=== PATIENT | female | born 1990 | race Caucasian/White ===

== ENCOUNTER 2024-06-04 09:30 | Outpatient (RCR) | payer MEDICAID, SELFPAY ==
--- NOTE | 2024-05-27 13:03 | PTNOTE_ITS ---
PT OP Initial Eval Patient Information Outpatient Physical Therapy Treatment Date: 05/27/24 Visit Reasons: Pain in Right shoulder Medical Diagnosis: M67.80; M75.01 Treatment Dx #1: Right Shoulder Pain Treatment Dx #2: Right Shoulder Impingement Start of Care: 05/27/24 Date of Onset: 8 years ago Smoking Status Smoking Status: Never smoker Initial Assessment Subjective: Pt is a 33 y/o female reports of chronic right shoulder pain (01/27) started 8 years ago and is worsening over the past 1 year. Pt mention most recent imaging found calcific tendon. Pt recently found her she is Pt has limitation with lifting, overhead motions, chores, self care, cooking, cleaning, and performing recreational activities. Objective: Right Shoulder AROM Flexion: 120 deg Abduction: 80 deg External Rotation: 50 deg Internal Rotation: 30 deg Right Shoulder MMTs: grossly 3-/5 Right Scapula MMTs: grossly 3-/5 Special Test (+) Hawkin-seth Assessment: Pt demonstrate right shoulder pain consistent with shoulder impingement leading to difficulty with ADLs. Pt will attempt physical therapy if pain persist Pt will be refer back to provider for further consultation. Short Term and [employer] Goals 1) Increase right shoulder AROM WFL in 6 wks to be able to perform chores 2) Decrease shoulder pain to 2/10 in 6 wks to be able to perform lifting activities 3) Increase right shoulder MMTs grossly to 3+/5 in 6 wks to be able to perform recreational activities 4) Indep with HEP Treatment Plan 1) Manual Therapy 2) Therapeutic Activities 3) Therapeutic Exercises 4) Modalities (ice, heat) Frequency and Duration: 2 x wk for 6 wks Certification Dates: 05/27/24 to 08/27/24 Procedure Charges OP PT Eval Mod Complex 30 minutes: Yes
--- NOTE | 2024-06-02 10:35 | PT.ODAYNRPT ---
PT Outpatient Daily Note OP Daily Note Outpatient Physical Therapy Treatment Date: 06/02/24 Visit Reasons: Pain in Right shoulder Subjective: Pt's shoulder pinch moving ourward. Pt can reach overhead with her arm close to the side with less pain. Objective: Please see flow chart for list of ther ex performed Assessment: pain with shoulder abduction with donny modified to scaption plane with less pain reported Plan: Continue with PT Length of Time (minutes) of Treatment: 30 Minutes Procedure Charges Therapeutic Exercise 30 minutes: Yes
--- NOTE | 2024-06-04 10:26 | PT.ODAYNRPT ---
PT Outpatient Daily Note OP Daily Note Outpatient Physical Therapy Treatment Date: 06/04/24 Visit Reasons: Pain in Right shoulder Subjective: Pt's shoulder feels about the same but neck is feeling better. Objective: Please see flow chart for list of ther ex performed Assessment: progressing with shoulder AAROM with less pain. Decrease upper trape usage with shoulder exercises leading to decrease neck pain Plan: Continue with PT Length of Time (minutes) of Treatment: 30 Minutes Procedure Charges Therapeutic Exercise 30 minutes: Yes
--- NOTE | 2024-06-30 09:45 | PTNOTE_ITS ---
PT OP Progress/Discharge Note Date of Service: 06/30/24 Progress Note/DC Note Progress Note/Discharge Note: DC Note Patient Information Visit Reasons: Pain in Right shoulder Service Discharge Date: 06/30/24 Status Assessment: Pt has been seen for 3 visits (eval + 2 visits). Pt no showed 06/09/24 appt and has not return to therapy. At this time Pt will be d/c from care due to non- compliance per attendance policy. Pt did not meet set goals in therapy; thank you for your referrals.
== END 2024-06-19 23:59 | disposition home or self-care (01) ==
LOC: CPTX 09:30
PROVIDERS: PCP Nurse Practitioner; Referring Provider Nurse Practitioner; Visit Provider Nurse Practitioner
DX: M25.511 Pain in right shoulder (principal); M67.80 Other specified disorders of synovium and tendon, unspecified site; M75.01 Adhesive capsulitis of right shoulder
CPT/HCPCS: 97110; 97162

== ENCOUNTER 2024-12-31 08:31 | Outpatient (RCR) | payer MEDICAID, SELFPAY ==
[2024-12-31 08:58] VITALS: BMI 23.9
[2024-12-31 08:59] VITALS: BP 128/73; PULSE 79; RESP 18; TEMP 36.3; O2SAT 99
[2024-12-31 09:20] VITALS: TEMP 36.3
[2024-12-31] MEDS: IRON SUCROS CPLX INJ 200 MG in SODIUM CHLORIDE 0.9% 100 ML 110 MG IV (09:24)
[2024-12-31 10:30] VITALS: BP 120/65; PULSE 73; RESP 18; TEMP 36.5; O2SAT 98
== END 2025-01-17 23:59 | disposition home or self-care (01) ==
LOC: SFLEX 08:31
PROVIDERS: PCP Nurse Practitioner; Referring Provider Specialist; Visit Provider Specialist
PROC: (CPT 96365; principal; 2024-12-31 09:00)
DX: D50.8 Other iron deficiency anemias (principal); K90.49 Malabsorption due to intolerance, not elsewhere classified
CPT/HCPCS: 96365; J1756; J7050

== ENCOUNTER 2025-01-01 21:05 | Outpatient (CLI) | payer MEDICAID, SELFPAY ==
[2025-01-01] VITALS (8 sets, daily range): BP systolic 124; BP diastolic 67; PULSE 98–115; RESP 18–98; TEMP 36.7; O2SAT 98–99; BMI 23.6
[2025-01-01] MEDS: BETAMET ACET/BETAMET NA PH (Celestone) 6 MG/ML VIAL 12 MG IM (21:50)
== END 2025-01-01 22:05 | disposition home or self-care (01) ==
LOC: S4SX 21:47 → S4S1 22:10
PROVIDERS: Referring Provider Specialist; Visit Provider Specialist
DX: Z34.83 Encounter for supervision of other normal pregnancy, third trimester (principal); Z36.9 Encounter for antenatal screening, unspecified; Z3A.36 36 weeks gestation of pregnancy
CPT/HCPCS: 59025; 96372; J0702

== ENCOUNTER 2025-01-02 07:47 | Inpatient (IN) | payer MEDICAID, SELFPAY ==
[2025-01-02] VITALS (44 sets, daily range): BP systolic 103–134; BP diastolic 54–74; PULSE 65–171; RESP 16–99; TEMP 36.6–36.8; O2SAT 97–100; BMI 23.6
[2025-01-02] MEDS: RINGERS LACTATED 1000 ML 1,000 ML 100 ML IV (07:55)
--- NOTE | 2025-01-02 08:13 | ESDS_ITS ---
DS: Providers Provider Date of admission: 01/02/25 07:47 Primary care physician: Physician No Primary/Family Admitting Provider: Marcos Gore MD Attending Provider on Admission: Marcos Gore MD Attending Provider on DC: Marcos Gore MD Discharging Provider: Marcos Gore MD DS: Diagnosis Problem List Completed Was Problem List Reviewed/Reconciled?: Yes Summary/Hosp Course Time Spent with Patient Time attestation: Total time spent providing and/or coordinating discharge services: Exam Vital Signs Pulse BP 104 H 134/74 H 01/02/25 07:55 01/02/25 07:55 Discharge Plan Plan Patient Disposition: HOME (Self Care) Disposition Comment: Stable Patient condition on transfer: Stable Prescriptions/Referrals Prescriptions/Med Rec: New ibuprofen 600 mg tablet 600 mg PO Q6H PRN (Reason: pain) Qty: 30 0RF 28-800 mg-mcg tablet 1 tab PO DAILY Qty: 90 3RF ferrous sulfate 325 mg (65 mg iron) tablet 325 mg PO BID Qty: 60 1RF Referrals: No Primary/Family,Physician [Primary Care Provider] - Patient/Caregiver Discharge Instructions Discharge Activity: activity as tolerated Other Discharge Activity Instructions:: Follow up office 6 weeks. Education Materials: After a Vaginal , Breast Care After , Anemia During , Feel Healthy After Print Language: Vietnamese Activity Restrictions/Additional Instructions: Call for heavy vaginal bleeding, signs of depression. Fevers chills. Stand Alone Forms: Sarahy Award Info., Patient Portal Info Letter, Work/Release Restrictions Discharge Order Discharge Orders: Discharge (Routine); Ordered 01/03/25 Ordered By: Ivania Piper ([facility]) Planned Discharge Date 01/03/25
--- NOTE | 2025-01-02 08:13 | PD.LDHP ---
Documentation for date of: 01/02/25 OB Labor/Induct. HPI History of Present Illness : 4 Term pregnancies: 3 pregnancies: 0 Living children: 3 History of Abortions: Spontaneous and Elective: 0 History of sections: No History of : No Gestational Age (weeks): 37 Gestational Age (days): 0 History of present illness: 34-year-old 4 para 3-0-0-3 with intrauterine at 37 weeks presents to labor and delivery complaining of contractions and progressed rapidly and delivered a viable female Apgars 9 / 9 over an intact perineum without complications. The patient had been experiencing threatened labor over the past 48 hours and she received betamethasone on December 31 and January 01. GBS was collected on December 30 and is unknown Comments: Her care was complicated by iron deficiency anemia History of Present Narrative: Past medical history: Iron deficiency anemia, migraine headaches with aura Family history: Marfan syndrome, trisomy 13, lung cancer, hypertension, diabetes Past surgical history denies Allergies no known drug allergies Medications multivitamin 1 p.o. daily and ferrous sulfate 325 mg 1 p.o. twice daily OB history: 3 prior full-term normal vaginal deliveries Past Medical History Surgical History SURGICAL: Negative Section Meds Home Medications and Allergies Allergies Allergy/AdvReac Type Severity Reaction Status Date / Time No Known Allergies Allergy Verified 01/01/25 21:28 OB Exam Physical Exam Vital signs: Pulse BP 104 H 134/74 H 01/02/25 07:55 01/02/25 07:55 Routine Respiratory Exam Comments: Clear to auscultation bilaterally Routine Cardiovascular Exam Comments: Regular rate and rhythm Routine Abdominal Exam Comments: Fundus 20 weeks size nontender Detailed Labor and Delivery Exam Comments: Perineum intact after vaginal delivery Routine Extremities Exam Comments: Nontender or edema OB Results Labs 01/02/25 08:05 Impressions Impression: day #0 status post spontaneous vaginal delivery at 37 weeks gestation care
[2025-01-02] MEDS: BENZO/LANO/ALOE (Dermoplast) 60 GM CAN 1 SPRAY TOP (08:16)
[2025-01-02] MEDS: IBUPROFEN TAB 400 MG TABLET 800 MG PO (08:19)
[2025-01-02] MEDS: OXYTOCIN in NS 20 units 20 UNIT/1,000 ML BAG 125 UNIT IV (08:19)
[2025-01-02 08:46] LABS: Basophils % (Auto) 0 % (0-2.5); Eosinophils % (Auto) 0 % (0-10); Hematocrit 25.9 % (36.0-46.0); Immature Granulocytes % (Auto) 4 % (0-0); Immature Granulocytes Auto 0.59 Thou/mm3 (0.00-0.00); Lymphocytes # (Auto) 1.3 Thou/mm3 (1.0-4.8); Lymphocytes % (Auto) 8 % (10-50); Mean Corpuscular HGB Conc 31.3 g/dl (31.0-37.0); Mean Corpuscular Hemoglobin 23.3 pg (25.0-35.0); Mean Corpuscular Volume 75 fL (80-100); Monocytes # (Auto) 0.5 Thou/mm3 (0.0-0.8); Monocytes % (Auto) 3 % (0-12); Neutrophils # (Auto) 13.9 Thou/mm3 (1.8-7.7); Neutrophils % (Auto) 85 % (37-80); Nucleated Red Blood Cell # 0.15 Thou/mm3 (0.00-0.00); Nucleated Red Blood Cell % 1 /100 WBC (0); Platelet Count 285 Thou/mm3 (140-440); RDW Standard Deviation 41.5 fL (36.4-46.3); Red Blood Count 3.47 Miln/mm3 (4.00-5.20); White Blood Count 16.3 Thou/mm3 (3.6-11.0)
[2025-01-02 08:50] LABS: Hemoglobin 8.1 g/dL (12.0-16.0)
--- NOTE | 2025-01-02 09:10 | PD.LDDELS ---
Data ([facility]) Data Hx Section: No : 4 Term: 3 : 0 Livin Abortions: Spontaneous & Theraputic: 0 Delivery Data ([facility]) Labor Data Initiation of labor: Spontaneous Induction/Augmentation Agent: None ROM date: 01/02/25 ROM time: 08:07 Amniotic membrane rupture type: Spontaneous Amniotic fluid description: Clear Delivery Data EDC: 01/23/25 EDC calculated by:: LMP/early US confirmation Onset of labor date: 01/02/25 Onset of labor time: 05:30 Complete dilation date: 01/02/25 Complete dilation time: 08:00 [place] delivery date: 01/02/25 [place] delivery time: 08:07 Gestational age (weeks): 37 Gestational age (days): 0 Placenta delivery date: 01/02/25 Placenta delivery time: 08:22 Stage 1 total time: Labor - Stage 1 Duration 2 hours and 30 minutes Delivered by: Marcos Gore Delivery nurse: MATHEUS Mcnealorn nurse: Jeffery Busby, vice president global digital marketing Alumni Relations Officer at delivery: No Support person(s) at delivery: FOB Other staff at delivery: MATHEUS Badillo, c d stripper Method Delivery method: Normal Vaginal Delivery Presentation: Vertex position: OA Anesthesia Type Anesthesia Type: None Placenta Placenta delivery description: Spontaneous Cord blood sent to lab: Yes cord blood collection: Cord Blood Type Episiotomy Episiotomy description: None EBL Estimated blood loss (ml): 100 Umbilical Cord cord description: 3 Vessels Additional Procedures None Complications Complications: None Data ([facility]) Data order: 1 [place]'s gender: Female Identification band number: [id number] weight (gms): 6 lb 2.591 oz Weight (pounds): 6 lbs and 2.6 ozs 1 minute: 9 5 minutes: 9
[2025-01-02 09:18] LABS: Syphilis Nonreactive (Nonreactive)
[2025-01-02 13:40] LABS: Basophils % (Auto) 0 % (0-2.5); Eosinophils % (Auto) 0 % (0-10); Hematocrit 23.3 % (36.0-46.0); Immature Granulocytes % (Auto) 3 % (0-0); Immature Granulocytes Auto 0.57 Thou/mm3 (0.00-0.00); Lymphocytes # (Auto) 1.1 Thou/mm3 (1.0-4.8); Lymphocytes % (Auto) 6 % (10-50); Mean Corpuscular Hemoglobin 23.2 pg (25.0-35.0); Mean Corpuscular Volume 77 fL (80-100); Monocytes # (Auto) 1.1 Thou/mm3 (0.0-0.8); Monocytes % (Auto) 5 % (0-12); Neutrophils # (Auto) 17.5 Thou/mm3 (1.8-7.7); Neutrophils % (Auto) 86 % (37-80); Nucleated Red Blood Cell # 0.16 Thou/mm3 (0.00-0.00); Nucleated Red Blood Cell % 1 /100 WBC (0); Platelet Count 248 Thou/mm3 (140-440); Red Blood Count 3.02 Miln/mm3 (4.00-5.20); White Blood Count 20.3 Thou/mm3 (3.6-11.0)
[2025-01-02 20:49] LABS: Basophils % (Auto) 0 % (0-2.5); Eosinophils % (Auto) 0 % (0-10); Hematocrit 23.9 % (36.0-46.0); Immature Granulocytes % (Auto) 3 % (0-0); Immature Granulocytes Auto 0.49 Thou/mm3 (0.00-0.00); Lymphocytes # (Auto) 1.7 Thou/mm3 (1.0-4.8); Lymphocytes % (Auto) 9 % (10-50); Mean Corpuscular HGB Conc 31.4 g/dl (31.0-37.0); Mean Corpuscular Hemoglobin 24.2 pg (25.0-35.0); Mean Corpuscular Volume 77 fL (80-100); Monocytes # (Auto) 1.3 Thou/mm3 (0.0-0.8); Monocytes % (Auto) 7 % (0-12); Neutrophils # (Auto) 14.7 Thou/mm3 (1.8-7.7); Neutrophils % (Auto) 81 % (37-80); Nucleated Red Blood Cell # 0.26 Thou/mm3 (0.00-0.00); Nucleated Red Blood Cell % 1 /100 WBC (0); Platelet Count 252 Thou/mm3 (140-440); RDW Standard Deviation 42.4 fL (36.4-46.3); White Blood Count 18.2 Thou/mm3 (3.6-11.0)
[2025-01-02 20:56] LABS: Hemoglobin 7.5 g/dL (12.0-16.0)
[2025-01-03 04:00] VITALS: BP 115/72; PULSE 65; RESP 16; TEMP 37.1; O2SAT 97
--- NOTE | 2025-01-03 07:49 | ESHP_ITS ---
RE: SÁNCHEZ MENCHACA : 1990 DATE OF ADMISSION: 12/31/2024 HISTORY OF PRESENT ILLNESS: This is a 34-year-old 3, para 3-0-0-3 with intrauterine at 36 weeks and 5 days who presents to labor and delivery complaining of crampy abdominal pain, diarrhea and contractions and is noted to be dilated 3 cm with contractions every 2-3 minutes. She denies any leaking or bleeding. She reports normal movement. She did receive an intravenous iron infusion this morning at [facility]. She has been treated for iron deficiency anemia with iron infusions during her due to inability to tolerate oral iron therapy. MEDICATIONS: 1. multivitamin 1 p.o. daily. 2. Metronidazole 500 mg 1 p.o. b.i.d. PAST MEDICAL HISTORY: Iron deficiency anemia, migraine headaches. FAMILY HISTORY: Paternal uncle lung cancer. Mother with diabetes, migraine headaches and hypertension. Niece, Trisomy-13. Brother, Marfan syndrome. OBSTETRIC HISTORY: Three previous full-term normal vaginal deliveries without complication. PAST SURGICAL HISTORY: Denies. ALLERGIES: NO KNOWN DRUG ALLERGIES. REVIEW OF SYSTEMS: She denies any chest pain, palpitations, cough, fever, shortness of breath or lower extremity pain. PHYSICAL EXAMINATION: VITAL SIGNS: Blood pressure 132/71, heart rate 88, respirations 18, temperature 98.2, weight 134 pounds. HEENT: Oropharynx and sclerae are clear. LUNGS: Clear to auscultation bilaterally. HEART: Regular rate and rhythm. ABDOMEN: Gravid, consistent with estimated weight 6 pounds. PELVIC: See RN nodes. EXTREMITIES: Nontender. SKIN: No gross rashes or lesions. NEUROLOGIC: No focal deficit. ASSESSMENT: Intrauterine of 36 weeks and 5 days. Early labor, labor. Anticipate spontaneous vaginal delivery. Group B strep unknown. PLAN: Ampicillin for group B strep, unknown. Anticipate spontaneous vaginal delivery. Informed consent was obtained. The patient has been made aware of the risks, complications, alternatives and benefits of operative vaginal delivery and delivery and agrees with these modes of delivery if indicated. DT: 21:21:36 TT: 22:02:00 Ref: [id number] - TID: [id number]
[2025-01-03 08:00] VITALS: BP 114/70; PULSE 63; RESP 16; TEMP 36.9; O2SAT 98
--- NOTE | 2025-01-03 08:11 | PD.LDPPPRG ---
Subjective Subjective Interval history: Patient is a 34-year-old -0-0-4 status post vaginal delivery yesterday. She is Dr Gore's patient. She is always anemic. Her predelivery hemoglobin was 8.2 postdelivery 7.5. She is ready to be discharged home today. No fevers chills no heavy vaginal bleeding. Patient is breast-feeding. Exam Vital Signs Temp Pulse Resp BP Pulse Ox O2 Del Method 98.7 F 65 16 115/72 97 Room Air 01/03/25 04:00 01/03/25 04:00 01/03/25 04:00 01/03/25 04:00 01/03/25 04:00 01/03/25 04:00 Narrative Exam Abdomen soft nontender nondistended fundus firm extremities show no cyanosis, edema Objective Labs 01/02/25 20:33 Labs: Laboratory Results - last 24 hr 01/02/25 01/02/25 01/02/25 08:05 13:12 20:33 WBC 16.3 H 20.3 H 18.2 H RBC 3.47 L 3.02 L 3.10 L Hgb 8.1 L 7.0 L 7.5 L Hct 25.9 L 23.3 L 23.9 L MCV 75 L 77 L 77 L MCH 23.3 L 23.2 L 24.2 L MCHC 31.3 30.0 L 31.4 RDW Std Deviation 41.5 43.0 42.4 Plt Count 285 D 248 D 252 Neut % (Auto) 85 H 86 H 81 H Lymph % (Auto) 8 L 6 L 9 L [place] % (Auto) 3 5 7 Eos % (Auto) 0 0 0 Baso % (Auto) 0 0 0 Neut # (Auto) 13.9 H 17.5 H 14.7 H Lymph # (Auto) 1.3 1.1 1.7 [place] # (Auto) 0.5 1.1 H 1.3 H Eos # (Auto) 0.0 0.0 0.0 Baso # (Auto) 0.0 0.0 0.0 Immature Gran # (Auto) 0.59 H 0.57 H 0.49 H Absolute Nucleated RBC 0.15 H 0.16 H 0.26 H Immature Gran % 4 H 3 H 3 H Nucleated RBC % 1 H 1 H 1 H Syphilis Serology Nonreactive Blood Type A Positive Antibody Screen NEGATIVE Blood Bank Wristband ID Yes Assessment & Plan Problem List (1) Term delivered: Problem details: instructions given. Call for any heavy vaginal bleeding fevers chills severe depression Status: Acute (2) Anemia affecting fourth : Status: Acute Assessment and plan: Encouraged iron and vitamins Time Spent With Patient Time: Total time spent is greater than 50% in coordination of care (as documented) at patient's floor/unit and/or counseling patient: Time with patient: less than 15 minutes
--- NOTE | 2025-01-03 08:16 | ESDS_ITS ---
DS: Providers Provider Date of admission: 01/02/25 08:00 Primary care physician: Physician No Primary/Family Admitting Provider: Marcos Gore MD Attending Provider on Admission: Marcos Gore MD Consults: 01/02/25 10:19 Referral Routine Comment: Attending Provider on DC: Ivania Piper MD ([facility]) Discharging Provider: Ivania Piper MD ([facility]) Anticipated date of discharge: 01/03/25 DS: Diagnosis Discharge Diagnosis (1) Anemia affecting fourth : Status: Acute Assessment & Plan: vitamins and iron encourage iron rich foods (2) Term delivered: Status: Acute Assessment & Plan: Pelvic rest x 6 weeks call for heavy vaginal bleeding fevers chills or severe depression. Problem List Completed Was Problem List Reviewed/Reconciled?: Yes Summary/Hosp Course Brief History: 34-year-old 4 para 3-0-0-3 with intrauterine at 37 weeks presents to labor and delivery complaining of contractions and progressed rapidly and delivered a viable female infant Apgars 9 / 9 over an intact perineum without complications. The patient had been experiencing threatened labor over the past 48 hours and she received betamethasone on December 31 and January 01. GBS was collected on December 30 and is unknown Patient underwent an uncomplicated vaginal delivery with Dr Gore on 01/02/2025. Please see delivery notes for further details. Predelivery hemoglobin was 8.2. Postdelivery hemoglobin was 7.5. course was uncomplicated. Patient was discharged home day #1 in stable condition. Peripartum Data Delivery Method: Normal Vaginal Delivery Episiotomy Description: None Laceration Description: see Delivery Summary complications: none Status at Discharge Cognitive/behavioral status at discharge: Stable Functional status at discharge: independent ambulation Overall status at discharge: patient is progressing back to baseline Time Spent with Patient Time attestation: Total time spent providing and/or coordinating discharge services: Time spent: Less than 30 minutes Specific discharge activities: Call for heavy vaginal bleeding, fevers, chills, severe depression. Exam Vital Signs Temp Pulse Resp BP Pulse Ox O2 Del Method 98.7 F 65 16 115/72 97 Room Air 01/03/25 04:00 01/03/25 04:00 01/03/25 04:00 01/03/25 04:00 01/03/25 04:00 01/03/25 04:00 Narrative Exam Fundus firm nontender extremities show no sinus clubbing or edema Discharge Plan Plan Patient Disposition: HOME (Self Care) Disposition Comment: Stable Patient condition on transfer: Stable Prescriptions/Referrals Prescriptions/Med Rec: New ibuprofen 600 mg tablet 600 mg PO Q6H PRN (Reason: pain) Qty: 30 0RF 28-800 mg-mcg tablet 1 tab PO DAILY Qty: 90 3RF ferrous sulfate 325 mg (65 mg iron) tablet 325 mg PO BID Qty: 60 1RF Referrals: No Primary/Family,Physician [Primary Care Provider] - Patient/Caregiver Discharge Instructions Discharge Activity: activity as tolerated Other Discharge Activity Instructions:: Follow up office 6 weeks. Education Materials: After a Vaginal , Breast Care After , Anemia During , Feel Healthy After Print Language: Upper Sorbian Activity Restrictions/Additional Instructions: Call for heavy vaginal bleeding, signs of depression. Fevers chills. Stand Alone Forms: Sarahy Award Info., Patient Portal Info Letter, Work/Release Restrictions Discharge Order Discharge Orders: Discharge (Routine); Ordered 01/03/25 Ordered By: Ivania Piper ([facility]) Planned Discharge Date 01/03/25
[2025-01-03] MEDS: DOCUSATE SOD 100 MG CAPSULE PO (08:47)
== END 2025-01-03 11:54 | disposition home or self-care (01) | DRG 560 ==
LOC: S4SX 09:32 → S4NX 11:43 → S4SX 01-03 07:53 → S4NX 01-03 07:54
PROVIDERS: Admitting Provider Specialist; Visit Provider Specialist
DX: O99.02 Anemia complicating childbirth (principal); Z37.0 Single live birth; Z3A.37 37 weeks gestation of pregnancy; D50.9 Iron deficiency anemia, unspecified
CPT/HCPCS: 36415; 84112; 85025; 86780; 86850; 86900; 86901; J2590; J7120; A9270